=== PATIENT | male | born 1945 | race Caucasian/White ===

== ENCOUNTER 2020-08-17 13:06 | Outpatient (CLI) | payer MEDICARE ==
--- NOTE | 2020-08-17 13:52 | ULT ---
US Renal Bilateral STANDARD History: Renal insufficiency Comparison: None. Findings: Real-time grayscale and color evaluation of the kidneys and urinary bladder is performed. Right kidney measures 10.2 x 5.6 x 5 cm with a small interpolar 2.3 cm cyst. Left kidney measures 12. 9 x 4.7 x 5.8 cm. No renal mass or hydronephrosis. No abnormal calcifications. Urinary bladder prevoid volume is 263 mL. Post void volume is 22 mL. Impression: 1. No evidence for renal obstructive uropathy. 2. Abnormal increased post void residual of 52 mL.
== END 2020-08-17 13:07 | disposition home or self-care (01) ==
LOC: BICULT 13:06
PROVIDERS: ATTEND Urology
DX: N28.9 Disorder of kidney and ureter, unspecified (principal); R33.9 Retention of urine, unspecified
CPT/HCPCS: 76770

== ENCOUNTER 2021-03-16 09:02 | Day surgery (SDC) | payer MEDICARE ==
[2021-03-15 12:00] VITALS: BMI 30.1
[2021-03-16] MEDS ORDERED: Levofloxacin 500 mg/D5W 100 ml Premix Bag ONE (09:18)
[2021-03-16] MEDS ORDERED: Metoclopramide HCl 10 MG/2 ML VIAL ONE (10:34)
[2021-03-16] MEDS ORDERED: Ondansetron PF 4 MG/2 ML Vial ONE (10:34)
[2021-03-16] MEDS ORDERED: Lidocaine 1% PF 5 ML VIAL ONE (10:34)
[2021-03-16] MEDS ORDERED: PROPOFOL 200 MG/20 ML VIAL ONE (10:34)
[2021-03-16] MEDS ORDERED: Midazolam HCl 2 mg/2 ml Vial ONE (10:37)
[2021-03-16] MEDS ORDERED: Famotidine/PF 20 mg/2ml Vial ONE (10:37)
[2021-03-16] MEDS ORDERED: Fentanyl 100 MCG/2 ML VIAL ONE (10:37)
[2021-03-16] MEDS ORDERED: Oxybutynin 5 MG TAB ONE (11:51)
[2021-03-16] MEDS ORDERED: Phenazopyridine HCl 100 MG TAB ONE ×2 (11:51→11:52)
== END 2021-03-16 15:30 | disposition home or self-care (01) ==
LOC: SDC 09:02
PROVIDERS: ATTEND Urology
PROC: 0T7D8DZ Dilation of Urethra with Intraluminal Device, Via Natural or Artificial Opening Endoscopic (ICD-10-PCS; principal; 2021-03-16)
DX: N40.1 Benign prostatic hyperplasia with lower urinary tract symptoms (principal); N13.8 Other obstructive and reflux uropathy; R35.0 Frequency of micturition; N32.89 Other specified disorders of bladder; N32.3 Diverticulum of bladder; N18.9 Chronic kidney disease, unspecified; E03.9 Hypothyroidism, unspecified; N52.9 Male erectile dysfunction, unspecified; L40.9 Psoriasis, unspecified; Z85.46 Personal history of malignant neoplasm of prostate; Z87.891 Personal history of nicotine dependence; Z79.899 Other long term (current) drug therapy
CPT/HCPCS: J1956; J2250; J2405; J2704; J2765; J3010; L8699; S0028